=== PATIENT | female | born 1960 | race African-American/Black ===

== ENCOUNTER 2019-01-18 16:48 | Emergency (ER) | payer SELFPAY ==
[2019-01-18 17:47] LABS: #Basophils 0.1 thou/uL (0.0-0.2); #Eosinphils 0.1 thou/uL (0.0-0.7); #Lymphocytes 3.3 thou/uL (1.20-3.40); #Monocytes 0.5 thou/uL (0.11-0.59); %Eosinophils 1.9 % (0.0-10.0); %Lymphocytes 46.7 % (21.0-51.0); %Monocytes 7.8 % (0.0-10.0); %Neutrophils 42.6 % (42.0-75.0); Hemoglobin 14.4 g/dL (12.0-16.0); Mean Corpuscular HGB CONC 32.9 g/dL (32.0-36.0); Mean Corpuscular Hemoglobin 31.6 pg (27.0-31.0); Mean Corpuscular Volume 96.1 fL (78.0-98.0); Mean Platelet Volume 9.1 fL (7.4-10.4); Platelet Count 256 thou/uL (130-400); Red Blood Cell (RBC) Count 4.57 mill/uL (4.20-5.40)
[2019-01-18 18:12] LABS: ALT (SGPT) 8 U/L (8-55); AST (SGOT) 13 U/L (5-34); Albumin 4.5 g/dL (3.5-5.0); Alkaline Phosphatase 97 U/L (40-150); Anion Gap 10 mmol/L (10-20); BUN (Urea Nitrogen) 16 mg/dL (9.8-20.1); Bilirubin, Total 0.4 mg/dL (0.2-1.2); Calc. Creatinine Clearance 0 mL/min (70-130); Calcium 9.7 mg/dL (7.8-10.44); Carbon Dioxide 27 mmol/L (22-29); Chloride 108 mmol/L (98-107); Estimated GFR-MDRD 57; Globulin 2.9 g/dL (2.4-3.5); Glucose 92 mg/dL (70-105); Potassium 3.4 mmol/L (3.5-5.1); Protein, Total 7.4 g/dL (6.0-8.3); Sodium 142 mmol/L (136-145)
--- NOTE | 2019-01-18 18:13 | RAD ---
PORTABLE CHEST 01/18/19 PROVIDED CLINICAL HISTORY: Hypertension. FINDINGS: No comparisons. The cardiac silhouette appears enlarged, which may be at least partially on the basis of portable demian hnique. No focal consolidation, pleural fluid or pneumothorax apparent. IMPRESSION: No evidence for an acute cardiopulmonary process. POS: [facility]
[2019-01-18] MEDS ORDERED: cloNIDine 0.1 MG TAB ONE (19:09)
[2019-01-18] MEDS ORDERED: Lisinopril 10 MG TAB ONE (19:09)
[2019-01-18] MEDS ORDERED: hydrALAZINE 20 MG/ML VIAL ONE (20:47)
== END 2019-01-18 21:26 | disposition home or self-care (01) ==
LOC: ERS 16:48
DX: I10 Essential (primary) hypertension (principal); E11.9 Type 2 diabetes mellitus without complications; F17.210 Nicotine dependence, cigarettes, uncomplicated; Z79.4 Long term (current) use of insulin; Z79.899 Other long term (current) drug therapy
CPT/HCPCS: 71045; 80053; 84484; 85025; 93005; 96374; J0360

== ENCOUNTER 2019-01-20 20:25 | Emergency (ER) | payer SELFPAY | END 2019-01-20 21:44 | disposition left against medical advice (07) | LOC: ERS 20:25 | DX: Z53.21 Procedure and treatment not carried out due to patient leaving prior to being seen by health care provider (principal) ==